=== PATIENT | female | born 1980 | race Caucasian/White ===

== ENCOUNTER 2017-09-03 17:46 | Emergency (ER) | payer SELFPAY ==
[2017-09-03 18:15] LABS: ABS Basophils 0.1 10^3/ul (0-0.2); ABS Eosinophils 0 10^3/ul (0-0.6); ABS Lymphocytes 2.1 10^3/ul (1.0-4.8); ABS Monocytes 0.6 10^3/ul (0-0.8); ABS Neutrophils 8.9 10^3/ul (1.5-7.7); ABS Nucleated RBC 0 10^3/ul; Eosinophil % 0.3 % (0-6); Hematocrit 39 % (35-47); Hemoglobin 13.3 g/dl (12.0-16.0); Lymphocyte % 17.7 % (25-47); Mean Corpuscular HGB Conc 34 g/dl (31-36); Mean Corpuscular Hemoglobin 31 pg (27-31); Mean Corpuscular Volume 91 fL (80-97); Mean Platelet Volume 7.9 um3 (7.4-10.4); Nucleated Red Blood Cells % 0.1; Platelet Count 354 10^3/ul (150-450); Red Blood Count 4.32 10^6/ul (4.0-5.4); Red Cell Distribution Width 13 % (10.5-15); White Blood Count 11.7 10^3/ul (3.5-10.8)
[2017-09-03 18:26] LABS: EGFR Non-African American 129.2 (>60)
[2017-09-03] MEDS ORDERED: NS 0.9% 1000 ML* 1,000 ML IV ONE (18:30)
--- NOTE | 2017-09-03 22:07 | ED ---
Benita Hutton Edward, scribed for Tavon Castillo MD on 09/03/17 at 1803 . Substance Abuse/Use - HPI Summary HPI Summary: 36 y/o female presents to the ED s/p SI. Pt is unresponsive on arrival. Most information provided by the pt's . 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 Pt vomited in the car on the way to the ED. Per , pt and had an argument last night. Pt attempted once last night , stopped by . found the pt unresponsive after coming home from school. Pt has a prior SI attempt last year stemming from stress related to her son. LEVEL 5 CAVEAT DUE TO PT BEING UNRESPONSIVE - History Of Current Complaint Chief Complaint: EDOverdose Stated Complaint: OVERDOSE Time Seen by Provider: 09/03/17 17:55 Hx Obtained From: Family/Conformal Pad Former - Hx From Patient Unobtainable Due To: Altered Mental Status - unresponsive Ingestion History: Type/Name Of Drug - Tyenol, Amount Ingested - "30 pills" Associated Signs And Symptoms: Vomiting - Allergies/Home Medications Allergies/Adverse Reactions: Allergies Allergy/AdvReac Type Severity Reaction Status Date / Time No Known Allergies Allergy Verified 09/03/17 18:10 PMH/Surg Hx/FS Hx/Imm Hx Previously Healthy: No - LEVEL 5 CAVEAT DUE TO PT BEING UNRESPONSIVE Cardiovascular History: Denies: Hx Congestive Heart Failure Opthamlomology History: Denies: Hx Legally Blind Psychiatric History: Reports: Hx Suicide Attempt - Family History Known Family History: Positive: Unknown - Social History Lives: With Family Review of Systems - ROS Summary Review of Systems Summary: LEVEL 5 CAVEAT DUE TO PT BEING UNRESPONSIVE Positive: Vomiting All Other Systems Reviewed And Are Negative: No Physical Exam - Summary Physical Exam Summary: LEVEL 5 CAVEAT DUE TO PT BEING UNRESPONSIVE Appearance: The patient is well-nourished in no acute distress and in no acute pain. Skin: The skin is warm and dry and skin color reflects adequate perfusion. HEENT: The head is normocephalic and atraumatic. The pupils are equal and reactive. The conjunctivae are clear and without drainage. Nares are patent and without drainage. Mouth reveals moist mucous membranes and the throat is without erythema and exudate. The external ears are intact. The ear canals are patent and without drainage. The tympanic membranes are intact. Neck: the neck is supple with full range of motion and non-tender. There are no carotid bruits. There is no neck vein distension. Respiratory: Chest is non-tender. Lungs are clear to auscultation and breath sounds are symmetrical and equal. Cardiovascular: Heart is regular rate and rhythm. There is no murmur or rub auscultated. There is no peripheral edema and pulses are symmetrical and equal. Abdomen: The abdomen is soft and non-tender. There are normal bowel sounds heard in all four quadrants and there is no organomegaly palpated. Musculoskeletal: There is no back tenderness noted. Extremities are non-tender with full range of motion. There is good capillary refill. There is no peripheral edema or calf tenderness elicited. Neurological: Patient's pupils are 2-3 mm and reactive. Pt resists me opening her eyes. Pt answers questions appropriately. Pt moves all extremities. Triage Information Reviewed: Yes Vital Signs On Initial Exam: Initial Vitals BP 93/65 09/03/17 18:00 Vital Signs Reviewed: Yes Diagnostics - Vital Signs Vital Signs Pulse Resp BP Pulse Ox 09/03/17 21:30 70 20 92/54 98 09/03/17 21:15 59 18 83/48 97 09/03/17 21:00 61 19 87/53 97 09/03/17 20:45 64 20 81/54 99 09/03/17 20:30 62 18 81/52 98 09/03/17 20:15 59 18 85/49 98 09/03/17 19:59 60 21 98 09/03/17 19:45 58 18 90/56 99 09/03/17 19:30 57 18 93/63 100 09/03/17 19:15 57 16 88/62 100 09/03/17 19:00 57 16 89/65 100 09/03/17 18:45 62 17 90/62 99 09/03/17 18:30 61 17 85/61 98 09/03/17 18:15 64 19 90/61 98 09/03/17 18:02 98 09/03/17 18:00 93/65 - Laboratory Lab Results: Lab Results 09/03/17 09/03/17 09/03/17 Range/Units 17:53 17:53 17:53 WBC 11.7 H (3.5-10.8) 10^3/ul RBC 4.32 (4.0-5.4) 10^6/ul Hgb 13.3 (12.0-16.0) g/dl Hct 39 (35-47) % MCV 91 (80-97) fL MCH 31 (27-31) pg MCHC 34 (31-36) g/dl RDW 13 (10.5-15) % Plt Count 354 (150-450) 10^3/ul MPV 7.9 (7.4-10.4) um3 Neut % (Auto) 76.2 (38-83) % Lymph % (Auto) 17.7 L (25-47) % [place] % (Auto) 5.0 (0-7) % Eos % (Auto) 0.3 (0-6) % Baso % (Auto) 0.8 (0-2) % Absolute Neuts (auto) 8.9 H (1.5-7.7) 10^3/ul Absolute Lymphs (auto) 2.1 (1.0-4.8) 10^3/ul Absolute Monos (auto) 0.6 (0-0.8) 10^3/ul Absolute Eos (auto) 0 (0-0.6) 10^3/ul Absolute Basos (auto) 0.1 (0-0.2) 10^3/ul Absolute Nucleated RBC 0 10^3/ul Nucleated RBC % 0.1 Sodium 137 L (139-145) mmol/L Potassium 3.7 (3.5-5.0) mmol/L Chloride 103 (101-111) mmol/L Carbon Dioxide 24 (22-32) mmol/L Anion Gap 10 (2-11) mmol/L BUN 8 (6-24) mg/dL Creatinine 0.54 (0.51-0.95) mg/dL Est GFR ( Amer) 166.2 (>60) Est GFR (Non-Af Amer) 129.2 (>60) BUN/Creatinine Ratio 14.8 (8-20) Glucose 130 H (70-100) mg/dL POC Glucose (mg/dL) (70-100) mg/dL Lactic Acid 1.5 (0.5-2.0) mmol/L Calcium 8.7 (8.6-10.3) mg/dL Total Bilirubin 0.80 (0.2-1.0) mg/dL AST 13 (13-39) U/L ALT 7 (7-52) U/L Alkaline Phosphatase 42 (34-104) U/L Total Protein 6.9 (6.4-8.9) g/dL Albumin 4.2 (3.2-5.2) g/dL Globulin 2.7 (2-4) g/dL Albumin/Globulin Ratio 1.6 (1-3) TSH 1.73 (0.34-5.60) mcIU/mL Beta HCG, Quant < 0.60 mIU/mL Salicylates < 2.50 (<30) mg/dL Acetaminophen 77 H* mcg/mL Serum Alcohol < 10 (<10) mg/dL 09/03/17 09/03/17 Range/Units 18:06 21:28 WBC (3.5-10.8) 10^3/ul RBC (4.0-5.4) 10^6/ul Hgb (12.0-16.0) g/dl Hct (35-47) % MCV (80-97) fL MCH (27-31) pg MCHC (31-36) g/dl RDW (10.5-15) % Plt Count (150-450) 10^3/ul MPV (7.4-10.4) um3 Neut % (Auto) (38-83) % Lymph % (Auto) (25-47) % [place] % (Auto) (0-7) % Eos % (Auto) (0-6) % Baso % (Auto) (0-2) % Absolute Neuts (auto) (1.5-7.7) 10^3/ul Absolute Lymphs (auto) (1.0-4.8) 10^3/ul Absolute Monos (auto) (0-0.8) 10^3/ul Absolute Eos (auto) (0-0.6) 10^3/ul Absolute Basos (auto) (0-0.2) 10^3/ul Absolute Nucleated RBC 10^3/ul Nucleated RBC % Sodium (139-145) mmol/L Potassium (3.5-5.0) mmol/L Chloride (101-111) mmol/L Carbon Dioxide (22-32) mmol/L Anion Gap (2-11) mmol/L BUN (6-24) mg/dL Creatinine (0.51-0.95) mg/dL Est GFR ( Amer) (>60) Est GFR (Non-Af Amer) (>60) BUN/Creatinine Ratio (8-20) Glucose (70-100) mg/dL POC Glucose (mg/dL) 128 H (70-100) mg/dL Lactic Acid (0.5-2.0) mmol/L Calcium (8.6-10.3) mg/dL Total Bilirubin (0.2-1.0) mg/dL AST (13-39) U/L ALT (7-52) U/L Alkaline Phosphatase (34-104) U/L Total Protein (6.4-8.9) g/dL Albumin (3.2-5.2) g/dL Globulin (2-4) g/dL Albumin/Globulin Ratio (1-3) TSH (0.34-5.60) mcIU/mL Beta HCG, Quant mIU/mL Salicylates (<30) mg/dL Acetaminophen 29 mcg/mL Serum Alcohol (<10) mg/dL Result Diagrams: 09/03/17 17:53 09/03/17 17:53 Lab Statement: Any lab studies that have been ordered have been reviewed, and results considered in the medical decision making process. - EKG 1 EKG Interpretation: NSR @ 63 BPM Course/Dx - Course Course Of Treatment: Ms. Grossman came in feigning unresponsiveness. She took an OD of acetaminophen at home. She did vomit on the way here and her acetaminophen was mildly elevated on arrival and WNL after 4 hours. She is medically cleared at this point and awaiting a MHE. - Diagnoses Provider Diagnoses: Acetaminophen overdose Discharge - Sign-Out/Discharge Documenting (check all that apply): Sign-Out Patient Signing out patient TO: Selena Cox - Discharge Plan Condition: Stable Referrals: No Primary Care Phys,NOPCP [Primary Care Provider] - - Billing Disposition and Condition Condition: STABLE The documentation as recorded by the Benita falcon Edward accurately reflects the service I personally performed and the decisions made by me, Tavon Castillo MD.
[2017-09-03 23:26] VITALS: BP 102/56
== END 2017-09-03 23:46 | disposition home or self-care (01) ==
LOC: ED 17:46
DX: T39.1X2A Poisoning by 4-Aminophenol derivatives, intentional self-harm, initial encounter (principal); Y92.9 Unspecified place or not applicable
CPT/HCPCS: 36415; 80053; 80320; 80329; 83605; 84443; 84702; 85025; 93005; 96360; 99285; G0480

== ENCOUNTER 2018-10-14 21:49 | Emergency (ER) | payer MEDICAID ==
--- NOTE | 2018-10-15 00:41 | ED ---
Skin Complaint - HPI Summary HPI Summary: Patient history 10 weeks complains of tick bite to abdomen of unknown duration. Denies any other symptoms pain or injury. Patient states she removed the tick full this evening, concerned about possible Lyme exposure. Patient states she was outside today, possible tick bite occurred today. Followed by OB /MARKETING PROGRAM MANAGER for . Medical history is none. - History of Current Complaint Chief Complaint: EDGeneral Time Seen by Provider: 10/15/18 00:27 Stated Complaint: TICK BITE PER PT Hx Obtained From: Patient Onset/Duration: Started Hours Ago Skin Exposure Onset/Duration: Hours Ago Current Severity: None Pain Intensity: 0 Pain Scale Used: 0-10 Numeric Aggravating Symptom(s): Nothing Alleviating Symptom(s): Nothing Associated Signs & Symptoms: Negative - Allergy/Home Medications Allergies/Adverse Reactions: Allergies Allergy/AdvReac Type Severity Reaction Status Date / Time No Known Allergies Allergy Verified 10/14/18 22:21 PMH/Surg Hx/FS Hx/Imm Hx Endocrine/Hematology History: Denies: Hx Anticoagulant Therapy Cardiovascular History: Denies: Hx Congestive Heart Failure History: Denies: Hx Dialysis Sensory History: Denies: Hx Legally Blind Opthamlomology History: Denies: Hx Legally Blind EENT History: Denies: Hx Deafness Neurological History: Denies: Hx Dementia Psychiatric History: Reports: Hx Suicide Attempt Denies: Hx Eating Disorder Infectious Disease History: No Infectious Disease History: Denies: Traveled Outside the [place] in Last 30 Days - Family History Known Family History: Positive: Non-Contributory - Social History Alcohol Use: None Alcohol Amount: unable to obtain Substance Use Type: Reports: None Substance Use Comment - Amount & Last Used: unable to obtain Smoking Status (MU): Never Smoked Tobacco Review of Systems Constitutional: Negative Eyes: Negative ENT: Negative Cardiovascular: Negative Respiratory: Negative Gastrointestinal: Negative Genitourinary: Negative Musculoskeletal: Negative Skin: Other Neurological: Negative Psychological: Normal All Other Systems Reviewed And Are Negative: Yes Physical Exam - Summary Physical Exam Summary: 0.5 cm x 0.5 cm area of erythema on abdomen inferior to umbilicus area no indication of bull's-eye rash. No indication of infection. No tick noted. Abdomen soft nontender. Triage Information Reviewed: Yes Vital Signs On Initial Exam: Initial Vitals Temp Pulse Resp BP Pulse Ox 98.7 F 74 16 127/86 100 10/14/18 22:18 10/14/18 22:18 10/14/18 22:18 10/14/18 22:18 10/14/18 22:18 Vital Signs Reviewed: Yes Appearance: Positive: Well-Appearing Skin: Positive: Warm Head/Face: Positive: Normal Head/Face Inspection Eyes: Positive: Normal Neck: Positive: Supple Respiratory/Lung Sounds: Positive: Clear to Auscultation Cardiovascular: Positive: Normal Abdomen Description: Positive: Nontender Musculoskeletal: Positive: Normal Neurological: Positive: Normal Psychiatric: Positive: Normal AVPU Assessment: Alert - [place] Coma Scale Best Eye Response: 4 - Spontaneous Best Motor Response: 6 - Obeys Commands Best Verbal Response: 5 - Oriented Coma Scale Total: 15 Diagnostics - Vital Signs Vital Signs Temp Pulse Resp BP Pulse Ox 10/15/18 00:09 97.6 F 69 17 116/66 100 10/14/18 22:18 98.7 F 74 16 127/86 100 - Laboratory Lab Statement: Any lab studies that have been ordered have been reviewed, and results considered in the medical decision making process. Course/Dx - Course Course Of Treatment: Patient history 10 weeks complains of tick bite to abdomen of unknown duration. Denies any other symptoms pain or injury. Patient states she removed the tick full this evening, concerned about possible Lyme exposure. Patient states she was outside today, possible tick bite occurred today. Followed by GENERAL OFFICE ASSOCIATE for . Medical history is none. Physical exam:0.5 cm x 0.5 cm area of erythema on abdomen inferior to umbilicus area no indication of bull's-eye rash. No indication of infection. No tick noted. Abdomen soft nontender. Vital signs within normal limits. Doxycycline 200 mg by mouth times one contraindicated due to . Patient advised to follow-up with GENERAL OFFICE ASSOCIATE for recommendation on Lyme prophylaxis. Patient understands and improves plan. - Diagnoses Provider Diagnoses: Tick bite of abdomen Discharge - Sign-Out/Discharge Documenting (check all that apply): Patient Departure Patient Received Moderate/Deep Sedation with Procedure: No - Discharge Plan Condition: Stable Disposition: HOME Patient Education Materials: Tick Bite (ED) Referrals: Keily Haile MD [Primary Care Provider] - Additional Instructions: Follow-up tomorrow with your GENERAL OFFICE ASSOCIATE for recommendation on tick bite management when . Return to the ED for any new or worsening symptoms. - Billing Disposition and Condition Condition: STABLE Disposition: Home
[2018-10-15 01:13] VITALS: BP 120/78
== END 2018-10-15 01:12 | disposition home or self-care (01) ==
LOC: ED 21:49
DX: O26.891 Other specified pregnancy related conditions, first trimester (principal); S30.861A Insect bite (nonvenomous) of abdominal wall, initial encounter; W57.XXXA Bitten or stung by nonvenomous insect and other nonvenomous arthropods, initial encounter; Y92.9 Unspecified place or not applicable; Z3A.10 10 weeks gestation of pregnancy
CPT/HCPCS: 99282

== ENCOUNTER 2019-05-05 04:26 | Inpatient (IN) | payer OTHER ==
[2019-05-05] MEDS ORDERED: Buffered Lidocaine 1% SYRIN* 1 ML/SYRINGE INTRADERM ONE (05:40)
[2019-05-05] MEDS ORDERED: Lactated Ringers 1000 ML Bag* 1,000 ML IV ONE ×2 (05:40→08:02)
[2019-05-05] MEDS ORDERED: Penicillin G Potassium IV* 5,000,000 UNITS in NS 0.9% 100 ML* 100 ML IVPB ONE (05:40)
[2019-05-05 05:50] LABS: Hematocrit 41 % (35-47); Hemoglobin 14.4 g/dL (12.0-16.0); Mean Corpuscular HGB Conc 35 g/dL (31-36); Mean Corpuscular Hemoglobin 33 pg (27-31); Mean Corpuscular Volume 96 fL (80-97); Mean Platelet Volume 8.3 fL (7.4-10.4); Platelet Count 292 10^3/uL (150-450); Red Blood Count 4.33 10^6 /uL (3.70-4.87); Red Cell Distribution Width 13 % (10-15); White Blood Count 11.6 10^3/uL (3.5-10.8)
--- NOTE | 2019-05-05 05:50 | HP ---
General Information - Reason for Visit Pt reports SROM to clear fluid around 0330 this morning, with ctx starting soon after - General Information Maternal Age: 38 Grav: 2 Para: 1 SAB: 0 IEA: 0 Estimated Due Date: 05/15/19 Determined By: Early Ultrasound Gestational Age in Weeks/Days: 38 4/7 Maternal Blood Type and Rh: B Positive - Results this Serology/RPR Result: Non-Reactive Rubella Result: Immune HBsAg Result: Negative HIV Result: Negative GBS Culture Result: Positive Past Medical History Delivery History: Hx Uncomplicated Vaginal Delivery Pertinent Past Medical History: See Records - hypothyroidism Pertinent Past Surgical History: See Records - breast biopsy Pertinent Family History: See Records - breast CA - Antepartal Records Antepartal Records: Reviewed, Complicated by: - hypothyroidism, A1 GDM Review of Systems Constitutional: Comfortable CV Complaint: No Respiratory: Shortness of Breath: No Gastrointestinal: No Nausea/Vomiting, Normal Bowel Movement Genitourinary: No Dysuria, No Bleeding, No Leaking Fluid Musculoskeletal: No Epigastric Pain, Contractions Neurological: No Headache, No Visual Changes Movement: Normal Exam Allergies/Adverse Reactions: Allergies No Known Allergies Allergy (Verified 05/05/19 05:14) T-98.0, P-86, R-17, BP-135/82, O2-100% - Measurements Height: 5 ft 2.6 in Weight: 60.328 kg Weight in lbs: [phone] Body Mass Index (BMI): 23.8 Pre- Weight: 45.359 kg Weight Gained This : 33 lbs and 0 ozs - Exam Breast: Breast Exam Deferred CVA: No CVA Tenderness Extremities: No Edema Heart: Normal Rhythm/Heart Sounds HEENT: No Significant Findings Lungs: Clear Bilaterally Rectal: Rectal Exam Deferred Reflexes: DTR 2+ Thyroid: No Thyromegaly - Abdominal Exam Abdomen Exam: Non-Tender, Fundal Height Consistent with Dates - Ultrasound/Biophysical Profile Ultrasound Status: Not Done Targeted Exam Findings See L&D Outpatient Visit Provider Note for Findings: N/A Estimated Weight: 7# Membrane Status: SROM Amniotic Fluid Evaluation: Gross Rupture, Clear Bleeding/Discharge: None - Cervical exam deferred due to ruptured membranes, will check when pt feels ready for epidural EFM Findings - External Monitor Findings Baseline Heart Rate: 140 External Monitor Findings: Accelerations Present, No Pattern of Variable or Late Decelerations, Variability Moderate, Baseline Stable Contractions: Regular, Mild, Moderate, < 45 Seconds, 45-90 Seconds Contraction Frequency: 5-6 minutes Assessment/Plan - Assessment 38 year old at 38 4/7 weeks gestation, with prelabor rupture of membranes, no evidnece of acidemia or chorioamnionitis - Obstetrical Risk Factors Obstetrical Risk Factors: GBS Positive, Gestational Diabetes - Plan Plan: Admit - Anticipate Vaginal Delivery Plan Comment: Discussed options with pt. As she is already reinaldo and they are getting stronger and closer together, no need to augment labor at this time - Date/Time of Admission Date of Admission: 05/05/19 Time of Admission: 05:20
[2019-05-05] MEDS ORDERED: Lactated Ringers 1000 ML Bag* 1,000 ML IV SCH ×3 (06:00→14:00)
[2019-05-05 06:12] LABS: ABS Basophils 0.1 10^3/ul (0-0.2); ABS Eosinophils 0.1 10^3/ul (0-0.6); ABS Lymphocytes 2.2 10^3/ul (1.0-4.8); ABS Monocytes 0.6 10^3/ul (0-0.8); ABS Neutrophils 8.7 10^3/ul (1.5-7.7); Eosinophil % 0.8 %; Lymphocyte % 19.1 %
[2019-05-05 06:48] LABS: Urine Benzodiazepine Screen None Detected (None Detect); Urine Opiates Screen None Detected (None Detect)
--- NOTE | 2019-05-05 06:54 | PN ---
Progress Note - Progress Note Date of Service: 05/05/19 SOAP: Subjective: Pt more uncomfortable w/ ctx, requests epidural. Objective: Cervix: 3-4 cm/ 80%/ -2/ vtx FHR: Baseline 140/ moderate variability/ + accels/ no decels UCs: 3-5 minutes Fluid clear, pink-tinged Assessment: Pt getting into active labor, requesting epidural for pain relief. Plan: Epidural for pain relief. Pt advised may require Pitocin augmentation once epidural in place, she is comfortable with that. Antibiotic prophylaxis for GBS positive status.
[2019-05-05] MEDS ORDERED: OBEPIDURAL* 250 ML EPIDURAL ONE (07:30)
[2019-05-05] MEDS ORDERED: Sodium Citrate/Citric Acid* 15 ML UDC PO PRN (08:02)
[2019-05-05] MEDS ORDERED: Phenylephrine 40 MCG/ML SYRINGE IV PUSH PRN ×2 (08:02)
[2019-05-05] MEDS ORDERED: Oxytocin in LR* 20 UNITS/1,000 ML BAG IVPB ONE (08:22)
[2019-05-05] MEDS ORDERED: Oxytocin in LR* 20 UNITS/1,000 ML BAG IVPB SCH ×2 (08:30→14:00)
[2019-05-05] MEDS ORDERED: Penicillin G Potassium IV* 2,500,000 UNITS in NS 0.9% 100 ML* 100 ML IVPB SCH (10:00)
[2019-05-05] MEDS: Levothyroxine TAB* 50 MCG TAB PO SCH (10:01)
--- NOTE | 2019-05-05 10:20 | PN ---
Progress Note - Progress Note Date of Service: 05/05/19 Note: S: Pt resting comfortably s/p epidural placement. Feels some pressure but no UCs. Dosing at present. Currently on right side O: BP 119/84 HR 73 FHT 140bpm. Moderate variability. +Accels. Variable decels with some UCs UCs q 2-4 IV pit at 6mu/min VE 6cm/100%/vtx 0 station. +Bloody show A: IUP at 38-4/7 in labor GBS +, 2 doses of penicillin given GDM A1 Cat II FHT: Doubt metabolic acidemia P: Enc rest. Close monitoring of maternal/ status.
[2019-05-05] MEDS ORDERED: Glycerin ADULT SUPP PR PRN (13:13)
--- NOTE | 2019-05-05 13:20 | PROCNOTE ---
[facility] OB: Delivery Note - Delivery A Date of : 05/05/19 Time of : 12:48 [place] Sex: Female - "Antonieta" [place] Weight at : 6 lb 5 oz Score 1 Minute: 9 Score 5 Minutes: 9 Gestational Age in Weeks and Days at Delivery: 38 Weeks and 4 Days Delivery Method: Spontaneous Vaginal Labor: Spontaneous - IV pitocin augmentation Did Patient attempt ?: N/A, No Previous Amniotic Fluid: Clear Estimated Blood Loss: 400 Anesthesia/Analgesia: CEI for Labor - placed by Dr. Tinsley Delivered By: Karan Mendoza - Nursery Level of Nursery: Regular/Bedside - Perineum Perineal Injury: 1st Degree - perineal laceration repaired in the usual fashion with 3-0 Rapide under local infiltration 1% lidocaine and epidural analgesia. Anatomy restored and good hemostasis achieved. Pt tolerated well Perineal Repair: By Delivering Practioner - Events Delivery Events of Note: Pitocin During Labor, Full Course of Antibiotics - for GBS prophylaxis - Additional Delivery Notes Additional Delivery Notes: Pt admitted with rupture of membranes to clear fluid. Received penicillin prophylaxis in labor per GBS protocol. After CEI placement IV pitocin augmentation started which led to onset active labor with expected progression to complete. Length of labor 3 hours, 35 min. Pushed x 17 min. liveborn female. Slow, controlled delivery of head. OA to JOSE MANUEL. Shoulders followed easily. Loose nuchal cord x 1 and cord around posterior arm x 1 both reduced after delivery. vigorous with spontaneous cry. HR>110bpm. Delivered to maternal abdomen. Cord clamped x 2 and cut by FOB when pulsations ceased. Spontaneous delivery intact placenta. Membranes complete. Brisk bleeding noted with delivery of placenta. Resolved with IV pitocin infusing and fundal massage. Repair as above. EBL 400mL. At time of note mother and in stable condition. Planning to breast feed.
[2019-05-05] MEDS: Docusate CAP* 100 MG PO SCH ×2 (16:57→19:55)
[2019-05-05] MEDS: Ibuprofen TAB* 600 MG PO SCH ×2 (16:58→23:55)
[2019-05-05] MEDS: Witch Hazel PAD* JAR TOPICAL PRN (17:06)
[2019-05-05] MEDS: Dibucaine 1% 28.35 GM TUBE PR PRN (17:06)
[2019-05-05] MEDS: Simethicone TAB* 80 MG TAB.CHEW PO SCH ×2 (18:45→21:00)
[2019-05-05] MEDS: Acetaminophen TAB* 325 MG PO PRN (19:55)
[2019-05-06] MEDS: Acetaminophen TAB* 325 MG PO PRN ×2 (04:24→12:18)
[2019-05-06 06:41] LABS: ABS Basophils 0.1 10^3/ul (0-0.2); ABS Eosinophils 0.2 10^3/ul (0-0.6); ABS Monocytes 0.8 10^3/ul (0-0.8); Eosinophil % 1.2 %; Hematocrit 34 % (35-47); Hemoglobin 11.4 g/dL (12.0-16.0); Lymphocyte % 14.4 %; Mean Corpuscular HGB Conc 34 g/dL (31-36); Mean Corpuscular Hemoglobin 32 pg (27-31); Mean Corpuscular Volume 95 fL (80-97); Mean Platelet Volume 8.1 fL (7.4-10.4); Platelet Count 220 10^3/uL (150-450); Red Blood Count 3.55 10^6 /uL (3.70-4.87); Red Cell Distribution Width 13 % (10-15)
[2019-05-06] MEDS: Ibuprofen TAB* 600 MG PO SCH ×4 (07:41→19:29)
[2019-05-06] MEDS: Docusate CAP* 100 MG PO SCH ×3 (07:41→19:29)
[2019-05-06] MEDS: Levothyroxine TAB* 50 MCG TAB PO SCH (07:41)
[2019-05-06] MEDS ORDERED: Ferrous Gluconate TAB* 324 MG TAB PO SCH (09:00)
[2019-05-07] MEDS: Ibuprofen TAB* 600 MG PO SCH ×2 (02:00→06:44)
[2019-05-07] MEDS: Dibucaine 1% 28.35 GM TUBE PR PRN (06:43)
[2019-05-07] MEDS: Witch Hazel PAD* JAR TOPICAL PRN (06:44)
[2019-05-07] MEDS: OBEPIDURAL* 250 ML EPIDURAL SCH ×2 (07:27→07:29)
[2019-05-07] MEDS: Simethicone TAB* 80 MG TAB.CHEW PO SCH (07:29)
[2019-05-07] MEDS: Levothyroxine TAB* 50 MCG TAB PO SCH (08:39)
[2019-05-07] MEDS: Docusate CAP* 100 MG PO SCH (08:39)
[2019-05-07 09:15] VITALS: BP 105/59
[2019-05-07] MEDS: Acetaminophen TAB* 325 MG PO PRN (12:02)
== END 2019-05-07 12:34 | disposition home or self-care (01) | DRG 560 ==
LOC: MCHOBOUT 04:26 → MCHOB 05:20
PROVIDERS: ADMIT Midwife; ATTEND Midwife
PROC: 10E0XZZ Delivery of Products of Conception, External Approach (ICD-10-PCS; principal; 2019-05-05)
PROC: 0HQ9XZZ Repair Perineum Skin, External Approach (ICD-10-PCS; 2019-05-05)
DX: O42.02 Full-term premature rupture of membranes, onset of labor within 24 hours of rupture (principal); Z37.0 Single live birth; O99.284 Endocrine, nutritional and metabolic diseases complicating childbirth; E03.9 Hypothyroidism, unspecified; O99.824 Streptococcus B carrier state complicating childbirth; O70.0 First degree perineal laceration during delivery; O69.81X0 Labor and delivery complicated by cord around neck, without compression, not applicable or unspecified; O24.420 Gestational diabetes mellitus in childbirth, diet controlled; Z3A.38 38 weeks gestation of pregnancy
CPT/HCPCS: 36415; 80307; 85025; 86850; 86900; 86901; A9270-GY; J2540